=== PATIENT | male | born 1945 | race Caucasian/White ===

== ENCOUNTER 2017-10-15 05:07 | Emergency (ER) | payer OTHER ==
[~2017-10-15] VITALS: Ht 180.3 cm; Wt 79.4 kg
[2017-10-15 07:43] LABS: Eosinophils # (auto) 0 uL; Hemoglobin 13.9 g/dL (13.5-17.5)
[2017-10-15 07:45] LABS: Basophils # (auto) 0 uL; Basophils % (auto) 0.3 % (0.0-2.0); Eosinophils % (auto) 0.3 % (0.0-7.0); Hematocrit 41.5 % (41.0-53.0); Lymphocytes # (auto) 0.9 uL; Lymphocytes % (auto) 11.6 % (10.0-50.0); Mean Corpuscular Hgb Conc. 33.5 g/dL (32.0-36.0); Mean Corpuscular Volume 104.6 fL (80.0-100.0); Monocytes # (auto) 0.4 uL; Monocytes % (auto) 5.4 % (0.0-12.0); Neutrophils # (auto) 6.4 uL; Neutrophils % (auto) 82.4 % (37.0-80.0); Platelet Count (auto) 160 10^3/uL (140-450); Red Blood Cells 3.97 10^6/uL (4.5-5.90); Red Cell Distribution Width 13.9 % (11.8-14.3); White Blood Cell 7.8 10^3/uL (4.4-10.8)
[2017-10-15 08:10] LABS: Albumin 2.8 g/dL (3.4-5.0); BUN/Creatinine Ratio 10.1; Bilirubin, Total 0.5 mg/dL (0.2-1.0); Calcium 7.7 mg/dL (8.5-10.1); Magnesium 2.5 mg/dL (1.6-2.6); Potassium 4.1 mmol/L (3.5-5.1)
[2017-10-15] MEDS ORDERED: IOHEXOL 350 MG/ML 100ML IJ ONE (08:29)
[2017-10-15] MEDS ORDERED: methylPREDNISolone SOD SUCC 125 MG/2 ML VL IV ONE (09:00)
[2017-10-15] MEDS ORDERED: ALBUTEROL SULF 2.5 MG/0.5ML(0.5%) NEB SOLN NEB ONE (09:00)
[2017-10-15] MEDS ORDERED: IPRATROPIUM BROM 0.5 MG/2.5ML INH SOL NEB ONE (09:00)
[2017-10-15] MEDS ORDERED: FUROSEMIDE 40 MG/4 ML VIAL IV ONE (11:45)
[2017-10-15 12:05] VITALS: BP 122/71
== END 2017-10-15 13:02 | disposition home or self-care (01) ==
LOC: EDBD 05:07 → ER 05:14
DX: I50.9 Heart failure, unspecified (principal); J44.9 Chronic obstructive pulmonary disease, unspecified; F17.210 Nicotine dependence, cigarettes, uncomplicated
CPT/HCPCS: 36415; 71045; 71275; 80053; 83735; 83880; 84484; 85025; 93005; 94640; 96372; 96374; 99285; J1940; J2930; Q9967

== ENCOUNTER 2017-12-27 15:46 | Observation (INO) | payer OTHER ==
[~2017-12-27] VITALS: Ht 180.3 cm; Wt 73.0 kg
[2017-12-27 16:18] LABS: Basophils # (auto) 0 uL; Basophils % (auto) 0.5 % (0.0-2.0); Eosinophils # (auto) 0 uL; Monocytes # (auto) 0.6 uL
[2017-12-27 16:19] LABS: Eosinophils % (auto) 0.6 % (0.0-7.0); Hematocrit 40.4 % (41.0-53.0); Hemoglobin 13.8 g/dL (13.5-17.5); Lymphocytes # (auto) 2.3 uL; Mean Corpuscular Hemoglobin 34.5 pg (28.0-32.0); Mean Corpuscular Hgb Conc. 34.1 g/dL (32.0-36.0); Mean Corpuscular Volume 101.2 fL (80.0-100.0); Neutrophils # (auto) 3.3 uL; Neutrophils % (auto) 51.9 % (37.0-80.0); Nucleated Red Blood Cells % 0.1 %; Platelet Count (auto) 171 10^3/uL (140-450); Red Blood Cells 3.99 10^6/uL (4.5-5.90); Red Cell Distribution Width 13.6 % (11.8-14.3); White Blood Cell 6.3 10^3/uL (4.4-10.8)
[2017-12-27 16:36] LABS: Alanine Aminotransferase 28 U/L (16-61); Albumin 3.6 g/dL (3.4-5.0); Alkaline Phosphatase 133 U/L (45-117); Anion Gap 5 (5-15); Aspartate Aminotransferase 21 U/L (15-37); BUN/Creatinine Ratio 19.2; Bilirubin, Total 0.7 mg/dL (0.2-1.0); Blood Urea Nitrogen 23 mg/dL (7-18); Calcium 8.4 mg/dL (8.5-10.1); Carbon Dioxide 24 mmol/L (21-32); Chloride 111 mmol/L (98-107); GFR African American 77 mL/min; GFR Non-African American 63 mL/min; Glucose 113 mg/dL (74-106); Magnesium 2.5 mg/dL (1.6-2.6); Sodium 140 mmol/L (136-145); Total Protein 7.1 g/dL (6.4-8.2)
[2017-12-27] MEDS ORDERED: ASPirin 81 mg TAB PO ONE (21:00)
[2017-12-27 22:09] LABS: Urine Bacteria NONE SEEN /hpf (None Seen); Urine Blood Negative /uL (Negative); Urine Mucus FEW (None Seen); Urine Specific Gravity 1.024 (1.001-1.035); Urine WBC 3 /hpf (0 - 3)
[2017-12-27 23:54] LABS: INR 1.03 (0.9-1.15); Partial Thromboplastin Time 24.2 sec (23.78-33.04)
[2017-12-28 01:00] VITALS: BP 114/71
== END 2017-12-28 01:15 | disposition short-term general hospital (02) | DRG 313 ==
LOC: ER 15:46 → OVERFLOW 15:47 → ER 12-28 01:15
PROVIDERS: ADMIT Family Medicine; ATTEND Family Medicine
DX: R07.89 Other chest pain (principal); I50.43 Acute on chronic combined systolic (congestive) and diastolic (congestive) heart failure; I25.110 Atherosclerotic heart disease of native coronary artery with unstable angina pectoris; I49.3 Ventricular premature depolarization; F17.210 Nicotine dependence, cigarettes, uncomplicated; J44.9 Chronic obstructive pulmonary disease, unspecified; Z86.73 Personal history of transient ischemic attack (TIA), and cerebral infarction without residual deficits; Z87.442 Personal history of urinary calculi; Z82.49 Family history of ischemic heart disease and other diseases of the circulatory system
CPT/HCPCS: 36415; 71046; 80053; 81001; 83735; 83880; 84443; 84484; 85025; 85610; 85730; 93005; 99285; G0378

== ENCOUNTER 2024-09-02 08:18 | Emergency (ER) | payer OTHER ==
[~2024-09-02] VITALS: Ht 172.7 cm; Wt 69.5 kg
[~2024-09-02 08:18] MED LIST: AMLO1TAB22 PO; ATOR-507 PO; BISO5TAB44 PO; DABI150C5 PO
--- NOTE | 2024-09-02 08:40 | ED.PDOC ---
General HPI Comments 78-year-old male presents to the ER with prior medical history of CAD, CHF, COPD-no home O2, kidney stones, hypertension, TIA, high lipids; surgical history of tonsillectomy, appendectomy, eye surgeries and the chief complaint of the hematuria x2.5 weeks. Patient the he had an appointment with the urologist at [place] but was too lightheaded to go to [place] for the appointment. Patient states on being weak, lightheaded, near-syncope x5. In triage patient had a saturation level of 80% room air and blood pressure of 99/77. Denies chills, fever, N/V/D, CP. No other associated symptoms, modifiers, recent injuries or sick contacts present at this time. Chief Complaint: Urinary Time Seen by MD: 08:30 Primary Care Provider: PAVITHRA Gibbs notes: Nurses Notes, Medications, Allergies Allergies: Coded Allergies: NO KNOWN ALLERGIES (Unverified , 10/15/17) Home Meds Reported Medications Atorvastatin Calcium (Lipitor) 40 Mg Tab, 1 TAB PO DAILY 06/16/23 Bisoprolol Fumarate (Bisoprolol Fumarate) 5 Mg Tab, TAB PO 06/14/23 Amlodipine Besylate (Amlodipine Besylate) 5 Mg Tab, 1 TAB PO DAILY 06/14/23 Dabigatran Etexilate Mesylate (Pradaxa) 150 Mg Cap, 1 CAP PO BID 06/14/23 Information Source: Patient Mode of Arrival: Ambulatory Severity: Moderate Timing: Weeks Duration: Since onset Prehospital treatment: None Onset: Spontaneous Symptoms: Hematuria History of: None Location: None Penile discharge: None Modifying factors: None associated signs and symptoms: Hematuria Past Medical History PAST MEDICAL HISTORY: CAD, CHF, COPD, High Lipids, HTN, Kidney Stones, TIA Surgical History: Appendectomy, Tonsillectomy Surgical History (Other): I surgery Family History Family History: Reviewed,noncontributory to illness, Unknown Social History Smoker: Unknown Alcohol: Unknown Drugs: Unknown Lives In: Home Constitutional: reports: weakness; denies: chills, diaphoresis, fatigue, fever, malaise, sweats, others EENTM: denies: blurred vision, double vision, ear bleeding, ear discharge, ear drainage, ear pain, ear ringing, eye pain, eye redness, hearing loss, mouth pain, mouth swelling, nasal discharge, nose bleeding, nose congestion, nose chiki n, photophobia, tearing, throat pain, throat swelling, voice changes, others Respiratory: denies: cough, hemoptysis, orthopnea, SOB at rest, shortness of breath, SOB with excertion, stridor, wheezing, others Cardiovascular: denies: chest pain, dizzy spells, diaphoresis, Dyspnea on exertion, edema, irregular heart beat, left arm pain, lightheadedness, palpitations, PND, syncope, others Gastrointestinal: denies: abdomen distended, abdominal pain, blood streaked bowels, constipated, diarrhea, dysphagia, difficulty swallowing, hematemesis, melena, nausea, poor appetite, poor fluid intake, rectal bleeding, rectal pain, vomiting, others Genitourinary: reports: hematuria; denies: burning, dysuria, flank pain, frequency, incontinence, penile discharge, penile sore, pain, testicle pain, testicle swelling, urgency, others Neurological: denies: dizziness, fainting, headache, left sided numbness, left sided weakness, numbness, paresthesia, pre-existing deficit, right sided numbness, right sided weakness, seizure, speech problems, tingling, tremors, weakness, others Musculoskeletal: denies: back pain, gout, joint pain, joint swelling, muscle pain, muscle stiffness, neck pain, others Integumetry: denies: bruises, change in color, change in hair/nails, dryness, laceration, lesions, lumps, rash, wounds, others Allergic/Immunocompromised: denies: Difficulty Healing, Frequent Infections, Hives, Itching, others Hematologic/Lymphatic: denies: anemia, blood clots, easy bleeding, easy bruising, swollen glands, others Endocrine: denies: excessive hunger, excessive sweating, excessive thirst, excessive urination, flushing, intolerance to cold, intolerance to heat, unexplained weight gain, unexplained weight loss, others Psychiatric: denies: anxiety, bipolar disorder, depression, hopeless, panic disorder, schizophrenia, sleepless, suicidal, others All Other Systems: Reviewed and Negative Physical Exam General Appearance: Normal HEENT: Pharynx Normal, TMs Normal Neck: Full Range of Motion, Normal, Normal Inspection Respiratory: Lungs Clear, No Accessory Muscle Use, No Respiratory Distress, Normal Breath Sounds Cardiovascular: No Edema, No JVD, No Murmur, No Gallop, Normal Peripheral Pulses, Regular Rate/Rhythm Breast Exam: Deferred Gastrointestinal: No Organomegaly, No Pulsatile Mass Genitalia: Deferred Pelvic: Deferred Rectal: Deferred Extremities: Normal capillary refill Musculoskeletal : Apperance: Normal Neurologic: Alert, black top roller II-XII nml as Tested, Normal Affect Cerebellar Function: Normal Reflexes: Normal Skin: Dry, Normal Color Lymphatic: No Adenopathy Was a procedure done? Was a procedure done?: No Differential Diagnosis Kidney stone (Female): N/A Kidney stone (Male): N/A Penile/Scrotal: N/A Urinary Problem (Male): Prostatitis, Urethritis Urinary Problem (Female): Pyelonephritis, UTI X-Ray, Labs, Meds, VS Vital Signs Date Time Temp Pulse Resp B/P (MAP) Pulse Ox O2 Delivery O2 Flow Rate FiO2 09/02/24 12:00 97.7 84 17 150/89 (109) 100 97.7 09/02/24 08:45 97.5 68 14 130/64 (86) 97 97.5 09/02/24 08:45 68 14 97 Nasal Cannula* 3 32 09/02/24 08:29 86 09/02/24 08:25 97.4 73 18 99/77 (84) 80 97.4 Lab Test 09/02/24 12:00 09/02/24 11:39 09/02/24 09:24 09/02/24 08:40 Range/Units Urine Color Red H Yellow Urine Clarity Ex.turbid Clear Urine pH 6.5 5.0-9.0 Urine Specific [place] 1.011 1.001-1.035 Urine Protein 2+ H Negative Urine Ketones Negative Negative Urine Blood 3+ H Negative /uL Urine Nitrite Negative Negative Urine Bilirubin Negative Negative Urine Urobilinogen Normal Negative mg/dL Urine Leukocyte Esterase Trace Negative /uL Urine RBC 74519 0 - 3 /hpf Urine Microscopic WBC 6958 H 0-3 /HPF Urine Squamous Epithelial Cells None seen <5 /hpf Urine Bacteria None seen None Seen /hpf Urine Glucose Normal Normal mg/dL Troponin I High Sensitivity 7 6 7 </=54 ng/L White Blood Count 6.0 4.4-10.8 10^3/uL Red Blood Count 2.40 L 4.5-5.90 10^6/uL Hemoglobin 7.5 L 13.5-17.5 g/dL Hematocrit 22.4 L 41.0-53.0 % Mean Corpuscular Volume 93.4 80.0-100.0 fL Mean Corpuscular Hemoglobin 31.3 28.0-32.0 pg Mean Corpuscular Hemoglobin Concent 33.5 32.0-36.0 g/dL Red Cell Distribution Width 15.4 H 11.8-14.3 % Platelet Count 196 140-450 10^3/uL Mean Platelet Volume 7.3 6.9-10.8 fL Neutrophils (%) (Auto) 69.8 37.0-80.0 % Lymphocytes (%) (Auto) 19.7 10.0-50.0 % Monocytes (%) (Auto) 9.0 0.0-12.0 % Eosinophils (%) (Auto) 0.7 0.0-7.0 % Basophils (%) (Auto) 0.8 0.0-2.0 % Neutrophils # (Auto) 4.2 1.6-8.6 10 ^3/uL Lymphocytes # (Auto) 1.2 0.4-5.4 10 ^3/uL Monocytes # (Auto) 0.5 0-1.3 10 ^3/uL Eosinophils # (Auto) 0 0-0.8 10 ^3/uL Basophils # (Auto) 0 0-0.2 10 ^3/uL Nucleated Red Blood Cells 0.1 % Sodium Level 138 136-145 mmol/L Potassium Level 5.4 H 3.5-5.1 mmol/L Chloride Level 108 H 98-107 mmol/L Carbon Dioxide Level 23 20-31 mmol/L Anion Gap 7 5-15 Blood Urea Nitrogen 24 H 9-23 mg/dL Creatinine 1.93 H 0.700-1.30 mg/dL Glomerular Filtration Rate Calc 35 >90 mL/min BUN/Creatinine Ratio 12.4 10.0-20.0 Serum Glucose 112 H 74-106 mg/dL Calcium Level 9.0 8.7-10.4 mg/dL B-Type Natriuretic Peptide 959.38 0-100 pg/mL Current Medications Medications (Trade) Dose Ordered Sig/Lonny Route Start Time Stop Time Status Last Admin Albuterol (Ventolin Medneb) 5 mg ONCE ONCE NEB 09/02/24 12:15 09/02/24 12:16 DC 09/02/24 12:20 Ipratropium [place] (Atrovent Medneb) 0.5 mg ONCE ONCE NEB 09/02/24 12:15 09/02/24 12:16 DC 09/02/24 12:20 PATIENT: JOSE R DING ACCT: [id number] UNIT: [id number] : 1945 LOC: ER ROOM / BED: / AGE / SEX: 78 / M ADM STATUS: REG ER SERVICE [id number] ORDERING PHYSICIAN: MONAE CHAMBERS MD PROCEDURE(s): CXRP - CHEST PORTABLE REASON: sob ORDER NUMBER(s): [id number], ACCESSION NUMBER(s): [id number] CHEST RADIOGRAPH Indication: sob Technique: Single frontal view of the chest was obtained COMPARISON: XY CHEST XRAY 1 VIEW on DOS: 06/14/23 FINDINGS: Lines and Tubes: None Lungs: Congestion Pleura: No effusion. No pneumothorax. Cardiomediastinal contours: Cardiomegaly Bones: Unremarkable IMPRESSION: Cardiomegaly. Mild congestion. Time of 1ST Reevaluation: 09:00 Reevaluation 1ST: Unchanged Patient Education/Counseling: Diagnosis, Treatment, Prognosis Family Education/Counseling: No Family Present Departure 1 Departure Time of Disposition: 13:25 ([facility] case [id number] with symptomatic anemia. We will transfuse the patient. Patient accepted as a transfer to [place].) Impression: Primary Impression: Acute dyspnea Additional Impression: Symptomatic anemia Disposition: 02 SHORT TERM HOSPITAL Condition: Serious Critical Care Note Critical Care Time?: Yes Critical care comment: Acute hypoxia Authorized and Performed by: Monae Chambers MD Total critical care time: Approximately 35 minutes Due to a high probability of clinically significant, life threatening deterioration, the patient required my highest level of preparedness to intervene emergently and I personally spent this critical care time directly and personally managing the patient. This critical care time included obtaining a history; examining the patient; pulse oximetry; ordering and review of studies; arranging urgent treatment with development of a management plan; evaluation of patient's response to treatment; frequent reassessment; and, discussions with other providers. This critical care time was performed to assess and manage the high probability of imminent, life-threatening deterioration that could result in multi-organ failure. It was exclusive of separately billable procedures and treating other patients and teaching time. Please see my other sections and the rest of the note for further information on patient assessment and treatment. Stability Stability form required: No I personally scribed for MONAE CHAMBERS MD ([email or web address]) on 09/02/24 at 08:40. Electronically submitted by Narendra Davis ([email or web address]). I personally scribed for MONAE CHAMBERS MD ([email or web address]) on 09/02/24 at 09:11. Electronically submitted by Arturo Chacon ([email or web address]). I personally scribed for MONAE CHAMBERS MD ([email or web address]) on 09/02/24 at 10:24. Electronically submitted by Narendra Davis ([email or web address]). MONAE CHAMBERS MD September 02, 2024 08:40
[2024-09-02 08:45] VITALS: PULSE 68; RESP 14; O2SAT 97
[2024-09-02 08:48] LABS: Basophils # (auto) 0 10 ^3/uL (0-0.2); Basophils % (auto) 0.8 % (0.0-2.0); Eosinophils # (auto) 0 10 ^3/uL (0-0.8); Hemoglobin 7.5 g/dL (13.5-17.5); Lymphocytes # (auto) 1.2 10 ^3/uL (0.4-5.4); Monocytes # (auto) 0.5 10 ^3/uL (0-1.3); Neutrophils # (auto) 4.2 10 ^3/uL (1.6-8.6); Nucleated Red Blood Cells % 0.1 %; Red Cell Distribution Width 15.4 % (11.8-14.3)
[2024-09-02 08:51] LABS: Eosinophils % (auto) 0.7 % (0.0-7.0); Hematocrit 22.4 % (41.0-53.0); Lymphocytes % (auto) 19.7 % (10.0-50.0); Mean Corpuscular Hemoglobin 31.3 pg (28.0-32.0); Mean Corpuscular Hgb Conc. 33.5 g/dL (32.0-36.0); Mean Corpuscular Volume 93.4 fL (80.0-100.0); Neutrophils % (auto) 69.8 % (37.0-80.0); Platelet Count (auto) 196 10^3/uL (140-450)
[2024-09-02 08:56] LABS: Sodium 138 mmol/L (136-145)
[2024-09-02 08:57] LABS: Anion Gap 7 (5-15); Carbon Dioxide 23 mmol/L (20-31)
[2024-09-02 08:58] LABS: Chloride 108 mmol/L (98-107); Potassium 5.4 mmol/L (3.5-5.1)
--- NOTE | 2024-09-02 09:03 | DVH ---
CHEST RADIOGRAPH Indication: sob Technique: Single frontal view of the chest was obtained COMPARISON: XY CHEST XRAY 1 VIEW on DOS: 06/14/23 FINDINGS: Lines and Tubes: None Lungs: Congestion Pleura: No effusion. No pneumothorax. Cardiomediastinal contours: Cardiomegaly Bones: Unremarkable IMPRESSION: Cardiomegaly. Mild congestion.
[2024-09-02 09:05] LABS: BUN/Creatinine Ratio 12.4 (10.0-20.0); Blood Urea Nitrogen 24 mg/dL (9-23); Glucose 112 mg/dL (74-106)
[2024-09-02 12:19] LABS: Urine Bacteria None Seen /hpf (None Seen)
[2024-09-02] MEDS: IPRATROPIUM BROM 0.5 MG/2.5ML INH SOL NEB ONE (12:20)
[2024-09-02] MEDS: ALBUTEROL SULF 2.5 MG/0.5ML(0.5%) NEB SOLN NEB ONE (12:20)
[2024-09-02 12:34] LABS: Urine Blood 3+ /uL (Negative); Urine Clarity Ex.Turbid (Clear); Urine Color Red (Yellow); Urine Protein, UAD 2+ (Negative); Urine Specific Gravity 1.011 (1.001-1.035); Urine Squamous Epithelial Cell None Seen /hpf (<5); Urine Urobilinogen Normal (Negative); Urine WBC 6958 /HPF (0-3); Urine pH 6.5 (5.0-9.0)
[2024-09-02 13:00] VITALS: PULSE 86; RESP 16; O2SAT 97
[2024-09-02 15:00] VITALS: BP 140/90; PULSE 84; RESP 16; TEMP 98.1
[2024-09-02 15:15] VITALS: BP 134/78; PULSE 96; RESP 17; TEMP 98.1; O2SAT 97
--- NOTE | 2024-09-06 12:20 | ECG ---
[facility] Test Date: 2024-09-02 Test Time: 08:29:05 Pat Name: JOSE R DING Department: ER Room: Gender: M First Leveler: MAXX : 1945 Requested By: MONAE URIBE Order Number: [id number] Reading MD: Measurements Intervals [place] Rate: 86 P: 0 [place]: 0 QRS: 131 QRSD: 91 T: 80 QT: 397 QTc: 475 Interpretive Statements Atrial fibrillation Ventricular premature complex Probable right ventricular hypertrophy Nonspecific T abnormalities, lateral leads Please click the below link to view image of tracing.
== END 2024-09-02 16:04 | disposition short-term general hospital (02) ==
LOC: ER 08:18
DX: D64.9 Anemia, unspecified (principal); I11.0 Hypertensive heart disease with heart failure; I50.9 Heart failure, unspecified; I25.10 Atherosclerotic heart disease of native coronary artery without angina pectoris; J44.9 Chronic obstructive pulmonary disease, unspecified; I48.91 Unspecified atrial fibrillation; I49.3 Ventricular premature depolarization; F17.200 Nicotine dependence, unspecified, uncomplicated; Z86.73 Personal history of transient ischemic attack (TIA), and cerebral infarction without residual deficits; Z79.02 Long term (current) use of antithrombotics/antiplatelets; Z79.899 Other long term (current) drug therapy; Z90.49 Acquired absence of other specified parts of digestive tract; Z90.89 Acquired absence of other organs
CPT/HCPCS: 36415; 36430; 71045; 80048; 81001; 83880; 84484; 85025; 86850; 86900; 86901; 86920; 93005; 94640; 99291; P9016

== ENCOUNTER 2025-02-23 14:43 | Inpatient (IN) | payer OTHER ==
[~2025-02-23] VITALS: Ht 170.2 cm; Wt 55.0 kg
[2025-02-23 14:53] VITALS: PULSE 131; RESP 21
[2025-02-23] MEDS: methylPREDNISolone SOD SUCC 125 MG in SODIUM CHL 0.9% 100 ML IV ONE (15:30)
--- NOTE | 2025-02-23 15:32 | ED.PDOC ---
SOB-HPI HPI Comments 79 y/o M, BIBA, with PMHx of COPD, CHF, CAD, HLD, and HTN presents to the ED for CC of shortness of breath. 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 Per EMS, upon arrival to scene patient was found to be hypoxic with an oxygen saturation of 70% on room air. En route to the ED, patient was given x2.5 of Atrovent and x5 of Albuterol with no change in symptoms or oxygen saturation; patient was in turn placed on C-Pap with slight improvement. EKG in field showed Afib/RVR. Upon arrival to the ED, patient is in severe distress and is saturating at 76% on C-Pap, EKG shows a rate of 140bpm with AFib/RVR. Patient was transferred to ED bed 06 and care is ongoing at this time. He states he has been noncompliant with medications for many weeks and has been having lower extremity swelling for about a week now. Further history limited secondary to patient's severity of illness. Chief Complaint: Shortness of Breath Time Seen by MD: 14:50 Primary Care Provider: CHELI Gibbs notes: Nurses Notes, Latent Fingerprint Examiner Notes, Medications, Allergies Information Source: Patient, Emergency Med Personnel Mode of Arrival: EMS Severity: Moderate Timing: Hours Duration: Since onset Context: At Rest PE Risk Factors: None History of: COPD, CHF Prehospital treatment: None Modifying Factors: Nothing Associated Signs and Symptoms: Cough If cough with SOB: Productive Past Medical History PAST MEDICAL HISTORY: CAD, CHF, COPD, High Lipids, HTN, Kidney Stones, TIA Surgical History: Appendectomy, Tonsillectomy Family History Family History: Reviewed,noncontributory to illness, Unknown Social History Smoker: Unknown Alcohol: Unknown Drugs: Unknown Lives In: Home Constitutional: denies: chills, diaphoresis, fatigue, fever, malaise, sweats, weakness, others EENTM: denies: blurred vision, double vision, ear bleeding, ear discharge, ear drainage, ear pain, ear ringing, eye pain, eye redness, hearing loss, mouth pain, mouth swelling, nasal discharge, nose bleeding, nose congestion, nose pain, photophobia, tearing, throat pain, throat swelling, voice changes, others Respiratory: reports: cough, shortness of breath; denies: hemoptysis, orthopnea, SOB at rest, SOB with excertion, stridor, wheezing, others Cardiovascular: denies: chest pain, dizzy spells, diaphoresis, Dyspnea on exertion, edema, irregular heart beat, left arm pain, lightheadedness, palpitations, PND, syncope, others Gastrointestinal: denies: abdomen distended, abdominal pain, blood streaked bowels, constipated, diarrhea, dysphagia, difficulty swallowing, hematemesis, melena, nausea, poor appetite, poor fluid intake, rectal bleeding, rectal pain, vomiting, others Genitourinary: denies: burning, dysuria, flank pain, frequency, hematuria, incontinence, penile discharge, penile sore, pain, testicle pain, testicle swelling, urgency, others Neurological: denies: dizziness, fainting, headache, left sided numbness, left sided weakness, numbness, paresthesia, pre-existing deficit, right sided numbness, right sided weakness, seizure, speech problems, tingling, tremors, weakness, others Musculoskeletal: denies: back pain, gout, joint pain, joint swelling, muscle pain, muscle stiffness, neck pain, others Integumetry: denies: bruises, change in color, change in hair/nails, dryness, laceration, lesions, lumps, rash, wounds, others Allergic/Immunocompromised: denies: Difficulty Healing, Frequent Infections, Hives, Itching, others Hematologic/Lymphatic: denies: anemia, blood clots, easy bleeding, easy bruising, swollen glands, others Endocrine: denies: excessive hunger, excessive sweating, excessive thirst, excessive urination, flushing, intolerance to cold, intolerance to heat, unexplained weight gain, unexplained weight loss, others Psychiatric: denies: anxiety, bipolar disorder, depression, hopeless, panic disorder, schizophrenia, sleepless, suicidal, others All Other Systems: Reviewed and Negative Physical Exam General Appearance: Severe Distress, Other (ill appearing, sever distress) HEENT: Normal ENT Inspection, Pharynx Normal Neck: Full Range of Motion, Non-Tender, Normal, Normal Inspection Respiratory: Chest Non-Tender, Lungs Clear, No Accessory Muscle Use, Respiratory Distress, Rhonchi Cardiovascular: No Edema, No Murmur, No Gallop, Normal Peripheral Pulses, Other (irregular,regular rhythm) Breast Exam: Deferred Gastrointestinal: No Organomegaly, Non Tender, No Pulsatile Mass, Normal Bowel Sounds, Soft Genitalia: Deferred Pelvic: Deferred Rectal: Deferred Extremities: No calf tenderness, Normal capillary refill, Normal inspection, Normal range of motion, Non-tender, No pedal edema Musculoskeletal : Apperance: Normal Neurologic: Alert, dressage judge II-XII nml as Tested, No Motor Deficits, Normal Affect, Normal Mood, No Sensory Deficits Cerebellar Function: Normal Reflexes: Normal Skin: Dry, Normal Color, Warm Lymphatic: No Adenopathy EKG EKG : Pulse Rate (adult): 140 [place]: Normal Cardiac Rhythm: Afib Block: None Hypertrophy: None Comments AFib/RVR Was a procedure done? Was a procedure done?: No Differential Dx Differential Diagnosis: CHF, COPD, Pneumonia, Respiratory Distress, Sinusitis, Pharyngitis, URI, Other (sepsis) X-Ray, Labs, Meds, VS Vital Signs Date Time Temp Pulse Resp B/P (MAP) Pulse Ox O2 Delivery O2 Flow Rate FiO2 02/23/25 15:32 140 02/23/25 14:59 98.0 140 24 116/76 76 98.0 02/23/25 14:45 140 Current Medications Medications (Trade) Dose Ordered Sig/Lonny Route Start Time Stop Time Status Last Admin Amiodarone HCl 250 ml @ 33.33 mls/ hr [id number] ONCE IV 02/23/25 15:15 02/23/25 22:45 02/23/25 15:28 X-Ray, Labs, Meds, VS Comment Patient with history of COPD, CHF, presents with shortness of breaths and cough, ongoing for 1 week, worsening flares prior to arrival. On my assessment, patient states that he would prefer to be DNR DNI and does not want any invasive interventions Chest x-ray to evaluate for evidence of pneumonia, pneumothorax, CHF EKG and troponin to evaluate for evidence of arrhythmia, ACS, AMI Lab work (CBC, BMP) to evaluate for evidence of severe anemia, electrolyte abnormality including hypokalemia, hyperkalemia, hypernatremia, hyponatremia, hyperglycemia, hypoglycemia, etc. Consider CT angio chest due to patient's presenting symptoms, but no CT angio chest obtained due to alternate cause of patient's presenting symptoms more likely after initial workup and management Holding IV fluids at this time as patient appears to be volume overloaded, is hypoxic, and is often taking his Lasix at home Blood cultures and lactic to evaluate for sepsis We will treat empirically with IV ceftriaxone azithromycin IV Solu-Medrol for COPD exacerbation Re-evaluate Social determinant surveillance affecting care: Social determinants of health that will affect the patient's care: Poor health literacy (additional time provided an explanation) Poor access to outpatient care/followup (provided outpatient resources) Time of 1ST Reevaluation: 15:10 Reevaluation 1ST: Unchanged Patient Education/Counseling: Diagnosis, Treatment Family Education/Counseling: No Family Present SEPSIS Sepsis Screen Date sepsis recognized/suspect: Feb 23, 2025 Time Sepsis recognized/suspect: 1444 Recent Procedure: No On Antibiotic Therapy: No Respiratory Rate >20: No Heart Rate >90: Yes Temp<36 C (96.8 F) or >38.3 C: No SBP <90 or MAP <65 mmHG: No New Acute Mental Status Change: No Is the patient on CPAP, BIPAP,: Yes IV fluid challenge completed?: Yes Physician Orders Lactic Acid W/ Reflex Order (02/23/25 14:55) Blood Culture (02/23/25 14:55) B-Type Natriuretic Peptide (02/23/25 14:55) Basic Metabolic Panel (02/23/25 14:55) Complete Blood Count (02/23/25 14:55) Troponin-I Hs (02/23/25 14:55) Lipase (02/23/25 14:55) Chest Portable (02/23/25 14:55) Electrocardigram (02/23/25 14:55) Troponin-I Hs (02/23/25 15:55) Troponin-I Hs (02/23/25 17:55) Electrocardigram (02/23/25 15:55) Electrocardigram (02/23/25 17:55) Azithromycin 500mg/ 250ml (Zithromax 50 (02/23/25 15:00) BIPAP (02/23/25 14:58) Abg W/ Co-Ox (02/23/25 14:58) Amiodarone 450mg/250ml Ae (Cordarone) (02/23/25 15:15) Amiodarone 450mg/250ml Ae (Cordarone) (02/23/25 21:15) Insert/Manage Urinary Catheter QSHIFT (02/23/25 15:01) Vital Signs Date Time Temp Pulse Resp B/P (MAP) Pulse Ox O2 Delivery O2 Flow Rate FiO2 02/23/25 15:32 140 02/23/25 14:59 98.0 140 24 116/76 76 98.0 02/23/25 14:45 140 Medications Medications Dose Ordered Sig/Lonny Route Start Time Stop Time Status Last Admin Dose Admin Amiodarone HCl 250 ml @ 33.33 mls/ hr Q7H31M ONCE IV 02/23/25 15:15 02/23/25 22:45 02/23/25 15:28 Reassessment Post Fluid SEPSIS FOCUS EXAM(REASSESSMENT Patient given 500 cc of IV fluids per EMS, so holding IV fluids at this time is hypoxic, in severe respiratory distress, appears volume overloaded Date of Reassessment: Feb 23, 2025 Departure 1 Departure Time of Disposition: 15:47 (On reassessment, patient had to be borderline anemic. Bibasilar consolidation seen on chest x-ray, consistent with pneumonia and CHF exacerbation. Will admit.) Impression: Primary Impression: Acute exacerbation of congestive heart failure Additional Impressions: Acute dyspnea COPD exacerbation Anemia Community acquired bilateral lower lobe pneumonia Disposition: ADMITTED INPATIENT Admit to: Med Surg Condition: Guarded Critical Care Note Critical Care Time?: Yes (55 min-critical care time only) Critical care comment: BIPAP, respiratory distress, heart failure exacerbation Stability Stability form required: No Heart Score Heart Score: Heart Score Response (Comments) Value History Moderate Suspicious 1 EKG N/A 0 Age >65 2 Risk Factors >3 or Hx ASHD 2 Troponin N/A 0 Total 5 I personally scribed for EFREN WINTERS MD ([email or web address]) on 02/23/25 at 15:32. Electronically submitted by Asya Clemente [email or web address]). EFREN WINTERS MD Feb 23, 2025 15:32
--- NOTE | 2025-02-23 15:35 | DVH ---
INDICATION: SOB TECHNIQUE: Frontal view of the chest. COMPARISON: XY CHEST PORTABLE on DOS: 09/02/24, XY CHEST XRAY 1 VIEW on DOS: 06/14/23 FINDINGS: COPD. Bibasailar opacites. . The heart and mediastinal contours are grossly unremarkable. There is no evidence of pleural disease. The bony structures of the chest are intact without fracture. IMPRESSION: 1. COPD with bibasilar opacities.
[2025-02-23 16:01] LABS: Chloride 101 mmol/L (98-107); Potassium 4.2 mmol/L (3.5-5.1); Sodium 139 mmol/L (136-145)
[2025-02-23 16:02] LABS: Anion Gap 16 (5-15); Carbon Dioxide 22 mmol/L (20-31)
[2025-02-23 16:03] LABS: Calcium 8.4 mg/dL (8.7-10.4)
[2025-02-23 16:07] LABS: BUN/Creatinine Ratio 25.9 (10.0-20.0); Glucose 99 mg/dL (74-106); Lipase 24 U/L (12-53)
[2025-02-23 16:08] LABS: Base Excess -3.0 mmol/L (-2.0-3.0)
[2025-02-23 16:10] LABS: Blood Urea Nitrogen 70 mg/dL (9-23)
[2025-02-23] MEDS: AZITHROMYCIN 500MG/250ML 250 ML IV ONE (16:12)
[2025-02-23 16:20] LABS: Lactic Acid w/Reflex 5.2 mmol/L (0.4-2.0)
[2025-02-23 16:52] LABS: Urine Protein, UAD TRACE (Negative)
[2025-02-23 17:04] LABS: Hematocrit 33.1 % (41.0-53.0); Hemoglobin 9.6 g/dL (13.5-17.5); Mean Corpuscular Hemoglobin 31.6 pg (28.0-32.0); Mean Corpuscular Volume 108.2 fL (80.0-100.0); Nucleated Red Blood Cells % 0.3 %
[2025-02-23 17:23] LABS: Anisocytosis Slight
--- NOTE | 2025-02-23 19:29 | ECG ---
[facility] Test Date: 2025-02-23 Test Time: 17:42:11 Pat Name: JOSE R DING Department: ED Room: [address] [place] [address] Gender: M Crime Scene Technician: FLORENTIN : 1945 Requested By: EFREN WINTERS Order Number: [id number] Reading MD: Thomas Hernandes Measurements Intervals [place] Rate: 104 P: 0 [place]: 0 QRS: 19 QRSD: 90 T: 119 QT: 396 QTc: 521 Interpretive Statements Atrial fibrillation Borderline low voltage, extremity leads Nonspecific T abnormalities, lateral leads Prolonged QT interval Electronically Signed On 02-24-2025 15:46:44 PST by Thomas Hernandes Please click the below link to view image of tracing.
[2025-02-23 19:30] VITALS: BP 98/71; PULSE 106; RESP 19; TEMP 97.9; O2SAT 96
[2025-02-23] MEDS ORDERED: MORPHINE SULFATE INJ 2 MG/ml SYRG IV PRN (19:30)
[2025-02-23] MEDS ORDERED: NITROGLYCERIN 0.4 MG SL TAB SL PRN (19:30)
[2025-02-23 19:41] VITALS: O2SAT 96
[2025-02-23 19:51] VITALS: PULSE 106; RESP 19; O2SAT 96
[2025-02-23] MEDS ORDERED: ACETAMINOPHEN 325 MG TAB PO PRN (20:00)
[2025-02-23] MEDS ORDERED: VANCOMYCIN PER PHARMACY 0 MG IV SCH (20:00)
[2025-02-23] MEDS ORDERED: ONDANSETRON HCL 4 MG/2 ML VIAL IV PRN (20:00)
[2025-02-23] MEDS ORDERED: ALBUTEROL SULF 2.5 MG/0.5ML(0.5%) NEB SOLN NEB PRN (20:00)
--- NOTE | 2025-02-23 20:06 | DVHHP2 ---
History of Present Illness Reason for Visit: Shortness for breath History of Present Illness 79-year-old male presents for evaluation shortness for breath. Patient was found hypoxic in the field with a saturation in the 70s on room air. Patient states having a nonproductive cough. On arrival patient was noted to be in AFib with RVR in the 140s. Currently on amiodarone drip. Denies chest pain. No fever or chills. Past Medical History CHF, COPD, dyslipidemia, hypertension, CAD Past Surgical History Tonsillectomy, appendectomy Smoke: No ALCOHOL: none Drugs: None Lives: with Family Review of Systems Review of Systems Review of systems are currently negative otherwise addressed in HPI. Allergies: Coded Allergies: NO KNOWN ALLERGIES (Unverified , 10/15/17) Medications Current Medications Medications Dose Ordered Sig/Lonny Route Start Time Stop Time Status Last Admin Dose Admin Amiodarone HCl 250 ml @ 16.66 mls/ hr Q15H1M IV 02/23/25 21:15 Nitroglycerin 0.4 mg Q5MINP PRN SL 02/23/25 19:30 UNV Morphine Sulfate 2 mg Q30M PRN IV 02/23/25 19:30 UNV Exam Vital Signs Vital Signs Date Time Temp Pulse Resp B/P (MAP) Pulse Ox O2 Delivery O2 Flow Rate FiO2 02/23/25 19:51 106 19 96 Nasal Cannula* 2 28 02/23/25 19:30 97.9 98/71 (80) 97.9 Exam Gen: 79-year-old male in moderate distress, cachectic Skin: Warm, dry, normal color and texture, no rash. HEENT: Normocephalic atraumatic, mucous membranes moist and pink. Neck: Cervical and supraclavicular nodes normal without enlargement, trachea is midline, thyroid gland is normal without masses. Pulmonary: Bilateral rhonchi Cardiac: Irregular rhythm Abdomen: Soft, nontender, nondistended, bowel sounds present all 4 quadrants, no guarding, no rigidity, no organomegaly. Extremities: No cyanosis, clubbing, no edema Neuro: Cranial nerves II through XII grossly intact, normal affect and speech, no focal motor deficits. Labs/Xrays ORDERING PHYSICIAN: EFREN WINTERS MD PROCEDURE(s): CXRP - CHEST PORTABLE REASON: SOB ORDER NUMBER(s): [id number], ACCESSION NUMBER(s): [id number] INDICATION: SOB TECHNIQUE: Frontal view of the chest. COMPARISON: XY CHEST PORTABLE on DOS: 09/02/24, XY CHEST XRAY 1 VIEW on DOS: 06/14/23 FINDINGS: COPD. Bibasailar opacites. . The heart and mediastinal contours are grossly unremarkable. There is no evidence of pleural disease. The bony structures of the chest are intact without fracture. IMPRESSION: 1. COPD with bibasilar opacities. 15:3 Labs Test 02/23/25 18:55 02/23/25 17:14 02/23/25 16:42 02/23/25 15:55 Range/Units Troponin I High Sensitivity 28 </=54 ng/L Lactic Acid Level 5.1 *H 0.4-2.0 mmol/L White Blood Count 13.8 H 4.4-10.8 10^3/uL Red Blood Count 3.06 L 4.5-5.90 10^6/uL Hemoglobin 9.6 L 13.5-17.5 g/dL Hematocrit 33.1 L 41.0-53.0 % Mean Corpuscular Volume 108.2 H 80.0-100.0 fL Mean Corpuscular Hemoglobin 31.6 28.0-32.0 pg Mean Corpuscular Hemoglobin Concent 29.2 L 32.0-36.0 g/dL Red Cell Distribution Width 21.1 H 11.8-14.3 % Platelet Count 41 L 140-450 10^3/uL Mean Platelet Volume 10.4 6.9-10.8 fL Neutrophils (%) (Auto) 91.8 H 37.0-80.0 % Lymphocytes (%) (Auto) 5.1 L 10.0-50.0 % Monocytes (%) (Auto) 3.0 0.0-12.0 % Eosinophils (%) (Auto) 0.0 0.0-7.0 % Basophils (%) (Auto) 0.1 0.0-2.0 % Neutrophils # (Auto) 12.7 H 1.6-8.6 10 ^3/uL Lymphocytes # (Auto) 0.7 0.4-5.4 10 ^3/uL Monocytes # (Auto) 0.4 0-1.3 10 ^3/uL Eosinophils # (Auto) 0 0-0.8 10 ^3/uL Basophils # (Auto) 0 0-0.2 10 ^3/uL Nucleated Red Blood Cells 0.3 % Platelet Estimate Decreased Anisocytosis (manual) Slight Urine Color Yellow Yellow Urine Clarity Clear Clear Urine pH 5.0 5.0-9.0 Urine Specific [place] 1.019 1.001-1.035 Urine Protein Trace H Negative Urine Ketones Negative Negative Urine Blood Negative Negative /uL Urine Nitrite Negative Negative Urine Bilirubin Negative Negative Urine Urobilinogen 3 H Negative mg/dL Urine Leukocyte Esterase Negative Negative /uL Urine RBC 3 0 - 3 /hpf Urine Microscopic WBC 2 0-3 /HPF Urine Squamous Epithelial Cells Few <5 /hpf Urine Bacteria None seen None Seen /hpf Urine Mucus Few None Seen Urine Glucose Normal Normal mg/dL Test 02/23/25 15:50 02/23/25 15:27 Range/Units Blood Gas Specimen Type Arterial Blood Gas Sample Site Left radial Blood Gas Patient Temperature 37.0 Arterial Blood Date Drawn [id number] Arterial Blood pH 7.529 H 7.350-7.450 Arterial Blood Partial Pressure CO2 21.9 L 35.0-48.0 mmHg Arterial Blood Partial Pressure O2 503.0 *H 83.0-108.0 mmHg Arterial Blood HCO3 17.8 L 21.0-28.0 mmol/L Arterial Blood Oxygen Saturation 99.7 H 94.0-98.0 % Arterial Blood Base Excess -3.0 L -2.0-3.0 mmol/L Arterial Blood Oxyhemoglobin 97.8 94.0-98.0 % Arterial Blood Carboxyhemoglobin 1.6 H 0.5-1.5 % Arterial Blood Methemoglobin 0.3 0.0-1.5 % Wilian Test Yes Blood Gas Total Hemoglobin 12.40 L 13.5-17.5 g/dL Blood Gas Set Respiration Rate 12.0 Blood Gas Modality Mask - bipap FiO2 % 100.0 Blood Gas EPAP 5 Blood Gas IPAP 10 Blood Gas Critical Value Read Back Yes Blood Gas Notified Whom venu Winters md Blood Gas Notified Time [id number] Blood Gas Notified By Torch Operator edouard marks Sodium Level 139 136-145 mmol/L Potassium Level 4.2 3.5-5.1 mmol/L Chloride Level 101 98-107 mmol/L Carbon Dioxide Level 22 20-31 mmol/L Anion Gap 16 H 5-15 Blood Urea Nitrogen 70 H 9-23 mg/dL Creatinine 2.70 H 0.700-1.30 mg/dL Glomerular Filtration Rate Calc 23 >90 mL/min BUN/Creatinine Ratio 25.9 H 10.0-20.0 Serum Glucose 99 74-106 mg/dL Calcium Level 8.4 L 8.7-10.4 mg/dL B-Type Natriuretic Peptide 273.67 0-100 pg/mL Lipase 24 12-53 U/L SEPSIS Sepsis Screen Date sepsis recognized/suspect: Feb 23, 2025 Time Sepsis recognized/suspect: 1939 Recent Procedure: No On Antibiotic Therapy: No Respiratory Rate >20: No Heart Rate >90: Yes Temp<36 C (96.8 F) or >38.3 C: No SBP <90 or MAP <65 mmHG: No New Acute Mental Status Change: No Is the patient on CPAP, BIPAP,: No IV fluid challenge completed?: Yes Physician Orders Blood Culture (02/23/25 14:55) Chest Portable (02/23/25 14:55) Electrocardigram (02/23/25 15:55) Electrocardigram (02/23/25 17:55) BIPAP (02/23/25 14:58) Abg W/ Co-Ox (02/23/25 14:58) Amiodarone 450mg/250ml Ae (Cordarone) (02/23/25 15:15) Amiodarone 450mg/250ml Ae (Cordarone) (02/23/25 21:15) Insert/Manage Urinary Catheter QSHIFT (02/23/25 15:01) Urine Bacterial Culture (02/23/25 15:55) Admit (02/23/25 19:28) Nitroglycerin Sublingual (Ntrostat Subli (02/23/25 19:30) Morphine Sulfate Injection (02/23/25 19:30) Notify Md Of Changes From Base (02/23/25 19:28) Associate Professor Of Radiology For 24 Hours (02/23/25 19:28) Emergency Dysrhythmia Protocol (02/23/25 19:28) Rhythm Strips Once Every Shift (02/23/25 19:28) Oxygen By Nasal Cannula (02/23/25 19:28) Stat Ekg For Chest Pain (02/23/25 19:28) Vital Signs Date Time Temp Pulse Resp B/P (MAP) Pulse Ox O2 Delivery O2 Flow Rate FiO2 02/23/25 19:51 106 19 96 Nasal Cannula* 2 28 02/23/25 19:41 96 Nasal Cannula* 2 28 02/23/25 19:41 96 Nasal Cannula 2.0 02/23/25 19:30 97.9 106 19 98/71 (80) 97.9 02/23/25 18:00 104 15 95/67 (76) 02/23/25 17:42 104 02/23/25 16:00 124 28 97/64 (75) 02/23/25 15:39 142 02/23/25 15:32 140 02/23/25 14:59 98.0 140 24 116/76 76 98.0 02/23/25 14:53 98.4 131 21 101/81 (88) 98.4 02/23/25 14:53 131 21 Bi-Pap+ 100 100 02/23/25 14:45 140 Laboratory Tests Test 02/23/25 15:27 02/23/25 16:42 02/23/25 17:14 Lactic Acid Level 5.2 mmol/L (0.4-2.0) *H 5.1 mmol/L (0.4-2.0) *H White Blood Count 13.8 10^3/uL (4.4-10.8) H Medications Medications Dose Ordered Sig/Lonny Route Start Time Stop Time Status Last Admin Dose Admin Amiodarone HCl 250 ml @ 33.33 mls/ hr Q7H31M ONCE IV 02/23/25 15:15 02/23/25 22:45 02/23/25 15:28 33.33 MLS/HR Azithromycin 250 ml @ 125 mls/hr ONCE ONCE IV 02/23/25 15:00 02/23/25 16:59 DC 02/23/25 16:12 125 MLS/HR Ceftriaxone Sodium 50 ml @ 100 mls/hr ONCE ONCE IV 02/23/25 15:00 02/23/25 15:29 DC 02/23/25 15:30 100 MLS/HR Methylprednisolone Sodium Succinate 125 mg/Sodium Chloride 100 ml @ 200 mls/hr ONCE ONCE IV 02/23/25 15:00 02/23/25 15:29 DC 02/23/25 15:30 200 MLS/HR Reassessment Post Fluid Date of Reassessment: Feb 23, 2025 Assessment/Plan Assessment/Plan Assessment Community-acquired pneumonia AFib with RVR Sepsis COPD Acute kidney injury Cachexia Plan Admit the patient to [facility] to the hospitalist Continue amiodarone drip Cardiology consultation Cefepime/vancomycin Med nebs Continue treatment per orders Total critical care time excluding procedures performed this 50 minutes Plan discussed with: Patient My Orders Orders - HOWARD MELVIN Procedure Category Date Status Time Admit ADMIT 02/23/25 Transmitted 19:28 Nitroglycerin [facility] 02/23/25 Logged Sublingual (Ntrostat 19:30 Morphine Sulfate [facility] 02/23/25 Logged Injection 19:30 Notify Of Changes [facility] 02/23/25 In Process From Base 19:28 Associate Professor Of Radiology For [facility] 02/23/25 In Process 24 Hours 19:28 Emergency Dysrhythmia [facility] 02/23/25 In Process Protocol 19:28 Rhythm Strips Once [facility] 02/23/25 In Process Every Shift 19:28 Oxygen By Nasal RT 02/23/25 Transmitted Cannula 19:28 Stat Ekg For Chest [facility] 02/23/25 In Process Pain 19:28 Date of Service: Feb 23, 2025 Billing Provider: HOWARD MELVIN Common Visit Codes: [id number] CARE 30-74 MIN HOWARD MELVIN Feb 23, 2025 20:06
[2025-02-23] MEDS: VANCOMYCIN 750MG KIT 100 ML IV ONE (20:48)
[2025-02-23] MEDS: SODIUM CHLORIDE 0.9% 500 ML IV ONE (20:54)
[2025-02-23] MEDS ORDERED: DABIGATRAN 75 MG CAP PO SCH (22:00)
[2025-02-23] MEDS: ATORVASTATIN 20 MG TAB PO SCH (23:58)
[2025-02-24] VITALS (121 sets, daily range): BP systolic 25–180; BP diastolic 14–137; PULSE 34–123; RESP 11–100; TEMP 89.6–91.2; O2SAT 0–92
[2025-02-24] MEDS: CEFEPIME 1GM/50ML 50 ML IV SCH (00:32)
[2025-02-24 04:57] LABS: Hemoglobin 12.0 g/dL (13.5-17.5)
[2025-02-24 04:59] LABS: Hematocrit 40.9 % (41.0-53.0); Mean Corpuscular Hemoglobin 32.4 pg (28.0-32.0); Mean Corpuscular Volume 110.5 fL (80.0-100.0); Nucleated Red Blood Cells % 1.0 %
[2025-02-24 05:15] LABS: Anion Gap 23 (5-15); BUN/Creatinine Ratio 18.6 (10.0-20.0); Chloride 100 mmol/L (98-107); Potassium 4.6 mmol/L (3.5-5.1); Total Protein 6.3 g/dL (5.7-8.2)
[2025-02-24 05:17] LABS: Alanine Aminotransferase 73 U/L (7-40); Albumin 2.4 g/dL (3.2-4.8); Alkaline Phosphatase 330 U/L (46-116); Bilirubin, Total 3.5 mg/dL (0.2-1.0); Blood Urea Nitrogen 55 mg/dL (9-23); Calcium 8.1 mg/dL (8.7-10.4); Carbon Dioxide 13 mmol/L (20-31); Glucose 111 mg/dL (74-106); Sodium 136 mmol/L (136-145)
[2025-02-24] MEDS: MIDODRINE HCL 10 MG TAB PO SCH (06:00)
[2025-02-24] MEDS: NOREPINEPHRINE 8 MG/250ML KIT 250 ML IV ONE (06:13)
[2025-02-24] MEDS: NOREPINEPHRINE 8 MG/250ML KIT 250 ML IV SCH (06:30)
--- NOTE | 2025-02-24 06:36 | ECG ---
[facility] Test Date: 2025-02-23 Test Time: 15:39:58 Pat Name: JOSE R DING Department: ED Room: [address] [place] [address] A Gender: M Teacher Asst: RANDY : 1945 Requested By: EFREN WINTERS Order Number: [id number] Reading MD: Thomas Hernandes Measurements Intervals [place] Rate: 142 P: -7 DE: 105 QRS: -10 QRSD: 89 T: -87 QT: 314 QTc: 483 Interpretive Statements Sinus tachycardia Paired ventricular premature complexes Low voltage, extremity leads Borderline repolarization abnormality Borderline prolonged QT interval Electronically Signed On 02-24-2025 15:46:34 PST by Thomas Hernandes Please click the below link to view image of tracing.
[2025-02-24] MEDS: FUROSEMIDE 40 MG TAB PO SCH (10:00)
[2025-02-24] MEDS ORDERED: ENOXAPARIN SOD 30 MG/0.3 ML SYRINGE SC SCH (10:00)
[2025-02-24] MEDS: PHENYLEPHRINE IV 250 ML IV SCH (10:51)
[2025-02-24] MEDS: EPINEPHrine HCL 250 ML IV ONE (11:05)
[2025-02-24] MEDS: DEXTROSE 50% SYRINGE 50 ML IV ONE (11:10)
[2025-02-24 11:13] LABS: Base Excess -21.8 mmol/L (-2.0-3.0)
[2025-02-24] MEDS: SODIUM BICARB 8.4% 50Meq/50ml SYR Vial IV ONE ×2 (11:18→12:12)
--- NOTE | 2025-02-24 12:11 | DVHINCON2 ---
Date of service: Feb 24, [address] Taylor Reason for Consultation Acute respiratory failure History of Present Illness History Source: Patient, RN Notes, MD Notes Exam Limitations: Clinical condition HPI Patient is a 79-year old gentleman with a history of COPD and CMP who presented with altered mental status. Was seen in the emergency room where he was found to be hypotensive requiring pressors and he was started on IV antibiotics for suspected sepsis. Chest x-ray shows in filtrates consistent with pneumonia and pulmonology was consulted to assist in management. Home Meds Reported Medications Atorvastatin Calcium (Lipitor) 40 Mg Tab, 1 TAB PO DAILY 06/16/23 Bisoprolol Fumarate (Bisoprolol Fumarate) 5 Mg Tab, TAB PO 06/14/23 Amlodipine Besylate (Amlodipine Besylate) 5 Mg Tab, 1 TAB PO DAILY 06/14/23 Dabigatran Etexilate Mesylate (Pradaxa) 150 Mg Cap, 1 CAP PO BID 06/14/23 Past Medical History Cardiac: Cardiomyopathy Pulmonary: COPD Patient Family History: Patient reports no known family medical history. Review of Systems Constitutional: No symptom reported Ears, Nose, & Throat: No symptom reported Eyes: No symptom reported Pulmonary/Respiratory: No symptom reported Cardiovascular: No symptom reported Gastrointestinal: No symptom reported Genitourinary: No symptom reported Musculoskeletal: No symptom reported Skin: No symptom reported Psychiatric: No symptom reported Endocrine: No symptom reported Hemotologic/Lymphatic: No symptom reported H&P Exam Vital Signs Vital Signs Date Time Temp Pulse Resp B/P (MAP) Pulse Ox O2 Delivery O2 Flow Rate FiO2 02/24/25 10:51 76/39 02/24/25 07:00 101 17 02/24/25 06:30 92 02/24/25 01:00 97.2 97.2 02/23/25 19:51 Nasal Cannula* 2 28 Labs/Xrays Labs Test 02/24/25 11:02 02/24/25 04:32 02/23/25 18:55 02/23/25 17:14 Range/Units Blood Gas Specimen Type Arterial Blood Gas Sample Site Right radial Blood Gas Patient Temperature 37.0 Arterial Blood Date Drawn [id number] Arterial Blood pH 7.016 *L 7.350-7.450 Arterial Blood Partial Pressure CO2 32.9 L 35.0-48.0 mmHg Arterial Blood Partial Pressure O2 79.7 L 83.0-108.0 mmHg Arterial Blood HCO3 8.2 L 21.0-28.0 mmol/L Arterial Blood Oxygen Saturation 87.0 L 94.0-98.0 % Arterial Blood Base Excess -21.8 L -2.0-3.0 mmol/L Arterial Blood Oxyhemoglobin 85.6 L 94.0-98.0 % Arterial Blood Carboxyhemoglobin 1.2 0.5-1.5 % Arterial Blood Methemoglobin 0.4 0.0-1.5 % Wilian Test Yes Blood Gas Total Hemoglobin 12.30 L 13.5-17.5 g/dL Blood Gas Liter Flow 2.00 Blood Gas Modality Nasal cannula FiO2 % 28.0 Blood Gas Critical Value Read Back Yes Blood Gas Notified Whom eulogio Taylor do Blood Gas Notified Time [id number] Blood Gas Notified By White Blood Count 18.4 #H 4.4-10.8 10^3/uL Red Blood Count 3.70 L 4.5-5.90 10^6/uL Hemoglobin 12.0 #L 13.5-17.5 g/dL Hematocrit 40.9 #L 41.0-53.0 % Mean Corpuscular Volume 110.5 H 80.0-100.0 fL Mean Corpuscular Hemoglobin 32.4 H 28.0-32.0 pg Mean Corpuscular Hemoglobin Concent 29.3 L 32.0-36.0 g/dL Red Cell Distribution Width 22.1 H 11.8-14.3 % Platelet Count 38 L 140-450 10^3/uL Mean Platelet Volume 10.4 6.9-10.8 fL Neutrophils (%) (Auto) 93.8 H 37.0-80.0 % Lymphocytes (%) (Auto) 3.1 L 10.0-50.0 % Monocytes (%) (Auto) 2.7 0.0-12.0 % Eosinophils (%) (Auto) 0.1 0.0-7.0 % Basophils (%) (Auto) 0.3 0.0-2.0 % Neutrophils # (Auto) 17.3 H 1.6-8.6 10 ^3/uL Lymphocytes # (Auto) 0.6 0.4-5.4 10 ^3/uL Monocytes # (Auto) 0.5 0-1.3 10 ^3/uL Eosinophils # (Auto) 0 0-0.8 10 ^3/uL Basophils # (Auto) 0.1 0-0.2 10 ^3/uL Nucleated Red Blood Cells 1.0 % Sodium Level 136 136-145 mmol/L Potassium Level 4.6 3.5-5.1 mmol/L Chloride Level 100 98-107 mmol/L Carbon Dioxide Level 13 L 20-31 mmol/L Anion Gap 23 H 5-15 Blood Urea Nitrogen 55 #H 9-23 mg/dL Creatinine 2.95 H 0.700-1.30 mg/dL Glomerular Filtration Rate Calc 21 >90 mL/min BUN/Creatinine Ratio 18.6 10.0-20.0 Serum Glucose 111 H 74-106 mg/dL Calcium Level 8.1 L 8.7-10.4 mg/dL Total Bilirubin 3.5 H 0.2-1.0 mg/dL Aspartate Amino Transferase (AST) 143 H 13-40 U/L Alanine Aminotransferase (ALT) 73 H 7-40 U/L Alkaline Phosphatase 330 H 46-116 U/L Total Protein 6.3 5.7-8.2 g/dL Albumin 2.4 L 3.2-4.8 g/dL Random Vancomycin Level 7.3 5-10 ug/mL D-Dimer, Quantitative 27.29 H 0.0-0.49 mg/L FEU Troponin I High Sensitivity 28 </=54 ng/L Lactic Acid Level 5.1 *H 0.4-2.0 mmol/L Test 02/23/25 16:42 02/23/25 15:55 02/23/25 15:50 02/23/25 15:27 Range/Units Anisocytosis (manual) Slight Urine Color Yellow Yellow Urine Clarity Clear Clear Urine pH 5.0 5.0-9.0 Urine Specific [place] 1.019 1.001-1.035 Urine Protein Trace H Negative Urine Ketones Negative Negative Urine Blood Negative Negative /uL Urine Nitrite Negative Negative Urine Bilirubin Negative Negative Urine Urobilinogen 3 H Negative mg/dL Urine Leukocyte Esterase Negative Negative /uL Urine RBC 3 0 - 3 /hpf Urine Microscopic WBC 2 0-3 /HPF Urine Squamous Epithelial Cells Few <5 /hpf Urine Bacteria None seen None Seen /hpf Urine Mucus Few None Seen Urine Glucose Normal Normal mg/dL Blood Gas Set Respiration Rate 12.0 Blood Gas EPAP 5 Blood Gas IPAP 10 B-Type Natriuretic Peptide 273.67 0-100 pg/mL Lipase 24 12-53 U/L Microbiology Date/Time Source Procedure Growth Status 02/23/25 15:55 Urine - [place] Urine Culture - Preliminary No growth Resulted Assessment/Plan Plan Impression Acute hypoxemic respiratory failure Severe metabolic acidosis Altered mental status Pneumonia Sepsis Patient seen and examined in the ER Events High oxygen requirements On 15 liters nonrebreather On pressors for hemodynamic support Right IJ was placed at the bedside for intravenous access See separate note for procedure in detail Labs and imaging reviewed Chest x-ray shows infiltrates consistent with pneumonia ABG reviewed pH 7.01, pCO2 32, pO2 79 Consistent with severe metabolic acidosis Sodium bicarb given IV push Management Supplemental oxygen Titrate to maintain sats 90% or above Incentive spirometry Antibiotics Obtain cultures Bronchodilators Monitor renal function Monitor electrolytes Supplement as needed Pressors as needed for hemodynamic support To maintain a mean arterial pressure of 65 mmHg DVT prophylaxis Critical care time 35 minutes Plan discussed with: Other (Rn) CARY WATERS MD Feb 24, 2025 12:11
--- NOTE | 2025-02-24 12:12 | DVHNC2 ---
Procedure - Procedure- Right IJ central line placement ultrasound guided Indication- Intravenous access Procedure in detail Consent was obtained and timeout performed per protocol. The patient was placed in the supine position and the right IJ vein was localized using ultrasound SonoSite. ChloraPrep was used to clean the operative field, sterile drapes used to cover the area and local analgesia Lidocaine 1% 3 cc. Triple-lumen catheter was inserted over the wire with direct ultrasound guidance in the right IJ vein. The wire was removed, catheter flushed with normal saline and secured with 2 sutures. Sterile dressing applied. CARY WATERS MD Feb 24, 2025 12:11
[2025-02-24] MEDS: SODIUM CHLORIDE 0.9% 2,000 ML IV ONE (12:13)
[2025-02-24] MEDS: SODIUM BICARB 50mEq/50ml Vial 150 ML in D5W 5% 1,000 ML IV SCH (12:52)
--- NOTE | 2025-02-24 13:09 | DVH ---
Bilateral Lower Extremity Arterial Duplex Clinical History: NO PULSES Comparison: None Technique: Duplex Doppler evaluation including color Doppler and spectral/pulsed waveform analysis of the lower extremity arteries was performed. Findings: RIGHT: Peak systolic velocities are as follows: AGRICULTURAL ENGINEERING TECHNICIAN 13 cm/s Deep femoral 40 cm/s SFA proximal 7 cm/s SFA mid-portion 17 cm/s SFA distal 0 cm/s Popliteal nv cm/s Posterior tibial nv cm/s Anterior tibial nv cm/s Peroneal nv cm/s Dorsalis pedis nv cm/s The waveforms are monophasic with diastolic flow. LEFT: Peak systolic velocities are as follows: AGRICULTURAL ENGINEERING TECHNICIAN 43 cm/s Deep femoral 38 cm/s SFA proximal 52 cm/s SFA mid-portion 22 cm/s SFA distal 9 cm/s Popliteal nv cm/s Posterior tibial nv cm/s Anterior tibial nv cm/s Peroneal nv cm/s Dorsalis pedis nv cm/s The waveforms are monophasic in the distal femoral artery. IMPRESSION: Bilateral popliteal to dorsalis pedis artery are not visualized possibly secondary to patient positioning and mobility. Monophasic waveforms are present throughout the right lower extremity. Monophasic waveforms are present in the distal superficial femoral artery. This suggests underlying peripheral arterial disease. REFERENCE VALUES, [facility] ([facility]) vascular Imaging Lab Criteria: Peak systolic velocity ranges (in cm/sec) are as follows: <150 cm/s - <20 % stenosis 150-200 cm/s - 20-49% stenosis 200-300 cm/s - 50-75% stenosis >300 cm/s -> 75% stenosis
--- NOTE | 2025-02-24 13:11 | DVH ---
CHEST RADIOGRAPH Indication: central line placement Technique: Single frontal view of the chest was obtained Comparison: XY CHEST PORTABLE on DOS: 02/23/25, XY CHEST PORTABLE on DOS: 09/02/24, XY CHEST XRAY 1 VIEW on DOS: 06/14/23 FINDINGS: Lines and Tubes: Right internal jugular catheter is in place with the tip in the distal superior vena cava proximal to the right atrium. Lungs: Increasing infiltrate and/or effusion throughout the right chest is noted. No pneumothorax Pleura: No effusion. No pneumothorax. Cardiomediastinal contours: Unremarkable Bones: No acute osseous abnormality. IMPRESSION: 1. Central line in place from the right in the superior vena cava proximal to the right atrium.. 2. Increasing airspace disease throughout the right chest may also represent some pleural effusion.
--- NOTE | 2025-02-24 13:48 | DVH ---
Bilateral lower extremity venous duplex Clinical History: edema Comparison: None Findings: Duplex Doppler evaluation of the deep venous systems of both lower extremities from the common femoral veins to the popliteal veins including color Doppler and spectral/pulsed waveform analysis was performed. Bilateral thrombus visualized from the common femoral vein to the distal femoral vein IMPRESSION: Bilateral DVTs If clinical concern/symptoms persist or worsen, short-interval follow-up study is suggested. END IMPRESSION:
[2025-02-24] MEDS: VASOPRESSIN 20 UNITS in SODIUM CHL 0.9% 99 ML IV SCH (14:03)
[2025-02-24] MEDS: DOPamine 1600MCG/ML D5W 250 ML IV SCH (14:41)
[2025-02-24] MEDS: MORPHINE SULFATE 4 MG/ML SYR/VIAL IV PRN (17:09)
[2025-02-24] MEDS: LORazepam 2MG/ML-1ML VIAL IV PRN (17:10)
[2025-02-24] MEDS: EPINEPHrine HCL 250 ML IV SCH (19:28)
[2025-02-24] MEDS: ALBUMIN 25% 100 ML IV SCH (19:28)
[2025-02-24] MEDS ORDERED: VANCOMYCIN 750MG KIT 100 ML IV ONE (21:00)
[2025-02-25] MEDS ORDERED: CEFEPIME 1GM/50ML 50 ML IV SCH (10:00)
--- NOTE | 2025-02-25 15:44 | DVHSR ---
APPROVED REPORT EXAM: LIMITED Two-dimensional and M-mode echocardiogram with Doppler and color Doppler. Blood Pressure: 73/45 mmHg INDICATION ef RISK FACTORS Height: 67, Weight: 121 DIMENSIONS EF (%) 20.0 (55-70%) Rt. Atrium (1.9-4.0cm) Asc. Aorta cm Mitral Valve Mitral Mitral Stenosis E/A ratio 0.0 2D MVA cm2 Aortic Valve Aortic Valve Aortic Stenosis V1 0.45m/s AO Mean GR. 1mmHg V2 0.73m/s AO Peak GR. 2mmHg LVOT Diameter 2.1 (1.8-2.4cm) Doppler NUVIA 2.13cm2 Other Information Quality : Technically Limited Rhythm : Technically limited study due to body habitus.patient position. Conclusion SEVERE AKINESIS OF ENTIRE ANTERIOR LV WALL,LV APEX AND DISTAL TWO THIRD OF IVS LV EF IS ONLY 15 % DILATED LV NORMAL VALVES NO EFFUSION
--- NOTE | 2025-02-27 10:47 | ECG ---
[facility] Test Date: 2025-02-23 Test Time: 14:45:48 Pat Name: JOSE R DING Department: ED Room: [address] [place] [address] Gender: M Industrial Engineering Director: FLORENTIN : 1945 Requested By: EFREN WINTERS Order Number: [id number] Reading MD: Thomas Hernandes Measurements Intervals [place] Rate: 140 P: 0 MA: 0 QRS: 25 QRSD: 72 T: 181 QT: 330 QTc: 504 Interpretive Statements Atrial fibrillation Borderline low voltage, extremity leads Borderline repolarization abnormality Borderline prolonged QT interval Electronically Signed On 02-28-2025 17:39:34 PST by Thomas Hernandes Please click the below link to view image of tracing.
== END 2025-02-24 20:10 | DRG 871 ==
LOC: ER 14:43 → EDBD 14:43 → OVERFLOW 19:26 → ICU WEST 02-24 18:10 → OVERFLOW 02-24 18:39
PROVIDERS: ADMIT Internal Medicine; ATTEND Internal Medicine
PROC: 02HV33Z Insertion of Infusion Device into Superior Vena Cava, Percutaneous Approach (ICD-10-PCS; principal; 2025-02-24)
PROC: B548ZZA Ultrasonography of Superior Vena Cava, Guidance (ICD-10-PCS; 2025-02-24)
DX: A41.9 Sepsis, unspecified organism (principal); J18.9 Pneumonia, unspecified organism; J96.01 Acute respiratory failure with hypoxia; E87.20 Acidosis, unspecified; R64 Cachexia; J44.0 Chronic obstructive pulmonary disease with (acute) lower respiratory infection; N17.9 Acute kidney failure, unspecified; I11.0 Hypertensive heart disease with heart failure; D64.9 Anemia, unspecified; J44.1 Chronic obstructive pulmonary disease with (acute) exacerbation; Z68.1 Body mass index [BMI] 19.9 or less, adult; E78.5 Hyperlipidemia, unspecified; I25.10 Atherosclerotic heart disease of native coronary artery without angina pectoris; I48.91 Unspecified atrial fibrillation; Z79.899 Other long term (current) drug therapy; Z87.442 Personal history of urinary calculi; Z86.73 Personal history of transient ischemic attack (TIA), and cerebral infarction without residual deficits
CPT/HCPCS: 36415; 36556; 36600; 71045; 80048; 80053; 80202; 81001; 82805; 82962; 83605; 83690; 83880; 84484; 85025; 85379; 87040; 87077; 87086; 87186; 93005; 93306; 93925; 93970; 96365; 96366; 96368; 99291; G0378; J0169